=== PATIENT | female | born 1990 | race Caucasian/White ===

== ENCOUNTER 2021-05-13 09:48 | Emergency (ER) | payer OTHER ==
[~2021-05-13] VITALS: Ht 160 cm; Wt 56.8 kg
[2021-05-13 09:57] VITALS: BP 101/71; TEMP 98.2
[2021-05-13 11:24] VITALS: PULSE 77
== END 2021-05-13 11:24 | disposition home or self-care (01) ==
LOC: COL.ER 09:48
DX: S90.112A Contusion of left great toe without damage to nail, initial encounter (principal); Z98.890 Other specified postprocedural states; W22.8XXA Striking against or struck by other objects, initial encounter